=== PATIENT | male | born 1965 | race Caucasian/White ===

== ENCOUNTER 2020-10-23 12:02 | Emergency (ER) | payer OTHER ==
[~2020-10-23] VITALS: Ht 188 cm; Wt 116.0 kg
[~2020-10-23 12:02] MED LIST: ASPIRIN LOW DOS81 M1 PO; ATENOLOL25 MG OR; AUGMENTIN875TAB PO; BACTRIM DS1 TAB PO; BACTROBAN21 EX; BENADRYL 50MG C50 MG PO; BIOFLEX PO; BOOSTRIX IM; CLINDAMYCIN300 M1 PO; CYANOCOBALAM1000 MCG IM; DENIES CURRENT MEDS; FISH OIL1000 M2 PO; FLEXERIL PO; KEFLEX500 M1 PO; LORTAB 1010 MG PO; MEDDOSEPAK PO; MOBIC7.5 MG PO; MOTRIN200 MG PO; MV-ONE PO; NAPROSYN500 MG PO; NO MEDS; PEPCID20 MG PO; PREDNISONE10 MG PO; PRINIVIL10 MG OR; PRINIVIL5 MG OR; SOLU-MEDROL125 MG IM; SUPER B COM2 PO; TRIMOX500 MG PO; ZANAFLEX4 MG PO
[2020-10-23 12:59] VITALS: BP 166/98
== END 2020-10-23 14:35 | disposition home or self-care (01) | DRG 563 ==
LOC: ED 12:02
DX: S93.402A Sprain of unspecified ligament of left ankle, initial encounter (principal); V58.4XXA Person boarding or alighting a pick-up truck or van injured in noncollision transport accident, initial encounter

== ENCOUNTER 2021-01-17 17:08 | Emergency (ER) | payer OTHER | END 2021-01-17 18:07 | disposition left against medical advice (07) | DRG 951 | LOC: ED 17:08 → LWOBS 18:06 | DX: Z53.21 Procedure and treatment not carried out due to patient leaving prior to being seen by health care provider (principal) ==

== ENCOUNTER 2021-02-21 10:32 | Emergency (ER) | payer OTHER ==
[~2021-02-21] VITALS: Ht 188 cm; Wt 114.3 kg
[2021-02-21 12:20] LABS: HEMATOCRIT 51.5 % (39.0-50.0); HEMOGLOBIN 17.3 g/dl (14.0-18.0); IMMATURE GRANULOCYTES 0.5 % (0.0-5.0); MEAN CELL VOLUME 94.3 fL CALC (80.0-100.0); MEAN CORPUSCULAR HGB 31.7 pG CALC (26.0-32.0); MEAN CORPUSCULAR HGB CONC 33.6 g/dL CAL (32.0-36.0); NEUT# 3.58 thou/uL (1.82-7.42); RED BLOOD COUNT 5.46 mill/uL (4.70-6.10); RED CELL DISTRI WIDTH 12.3 % (11.5-15.5)
[2021-02-21 12:22] LABS: ALBUMIN 4.8 g/dL (3.2-5.0); ALKALINE PHOSPHATASE 76 u/l (38-126); ANION GAP 14 (6-22 (CALC)); BUN 24 mg/dL (9-20); BUN/CREATININE RATIO 23 (12-20 (CALC)); CARBON DIOXIDE 23 mmol/l (22-30); CHLORIDE 107 mmol/l (95-108); CPK 344 u/l (52-200); GFR > 60 ML/MIN (>=60 (CALC)); GFR FOR AFR.AMER. > 60 ML/MIN (>=60 (CALC)); POTASSIUM 4.2 mmol/l (3.5-5.1); SGOT/AST 42 u/l (17-59); SODIUM 139 mmol/l (137-146); TOTAL PROTEIN 8.2 g/dL (6.3-8.2)
[2021-02-21 12:24] LABS: INTERNATIONAL NORMALIZED RATIO 0.9 RATIO (0.7-1.3); PROTHROMBIN TIME 9.4 SECONDS (9.0-12.5)
[2021-02-21 12:39] LABS: BILIRUBIN, TOTAL 0.8 mg/dL (0.0-1.4)
[2021-02-21 12:52] VITALS: BP 175/101
== END 2021-02-21 12:53 | disposition short-term general hospital (02) | DRG 999 ==
LOC: ED 10:32
DX: T24.70 Corrosion of third degree of unspecified site of lower limb, except ankle and foot (principal); T32 Corrosions classified according to extent of body surface involved; T27.7XXA Corrosion of respiratory tract, part unspecified, initial encounter; T24.601A Corrosion of second degree of unspecified site of right lower limb, except ankle and foot, initial encounter; T54.2X1A Toxic effect of corrosive acids and acid-like substances, accidental (unintentional), initial encounter; Y93.89 Activity, other specified; Y92.002 Bathroom of unspecified non-institutional (private) residence as the place of occurrence of the external cause; Y99.0 Civilian activity done for income or pay

== ENCOUNTER 2022-08-19 06:41 | Day surgery (SDC) | payer OTHER ==
[~2022-08-19] VITALS: Ht 188 cm; Wt 115.7 kg
[2022-08-19] MEDS ORDERED: MELOXICAM7.5 MG PO (07:15)
[2022-08-19 11:45] VITALS: BP 138/94
== END 2022-08-19 09:45 | disposition home or self-care (01) | DRG 556 ==
LOC: ORM 06:41
PROVIDERS: ATTEND Physical Medicine & Rehabilitation
DX: M25.561 Pain in right knee (principal); M25.562 Pain in left knee; G89.4 Chronic pain syndrome; M17.0 Bilateral primary osteoarthritis of knee; M62.838 Other muscle spasm
CPT/HCPCS: Q9967

== ENCOUNTER 2024-07-10 05:55 | Emergency (ER) | payer BC ==
[2024-07-10] VITALS (9 sets, daily range): BP systolic 121–153; BP diastolic 75–120
[~2024-07-10] VITALS: Ht 188 cm; Wt 113.0 kg
[~2024-07-10 05:55] MED LIST changes: +CRESTOR20 MG PO; +MELOXICAM7.5 MG PO; +OMEPRAZOLE DR40 MG PO
[2024-07-10] MEDS ORDERED: MORPHINE SULFATE 4 MG/ML VIAL IV STA (06:13)
[2024-07-10] MEDS ORDERED: SODIUM CHLORIDE 0.9% 1,000 ML IV STA (06:13)
[2024-07-10] MEDS ORDERED: TAMSULOSIN HCL 0.4 MG CAP PO STA (06:13)
[2024-07-10] MEDS ORDERED: PROMETHAZINE HCL 25 MG/ML AMP IV ONE (06:15)
[2024-07-10] MEDS ORDERED: KETOROLAC TROMETHAMINE 30 MG/ML SDV IV ONE (06:15)
[2024-07-10 06:50] LABS: BASO% 0.4 % (0-3); EOS% 2.6 % (0-8); HEMATOCRIT 45.8 % (39.0-50.0); HEMOGLOBIN 15.6 g/dl (14.0-18.0); IMMATURE GRANULOCYTES 0.4 % (0.0-5.0); LYMPH% 41.8 % (15-41); MEAN CELL VOLUME 95.4 fL CALC (80.0-100.0); MEAN CORPUSCULAR HGB 32.5 pG CALC (26.0-32.0); MEAN CORPUSCULAR HGB CONC 34.1 g/dL CAL (32.0-36.0); MONO% 9.3 % (2-13); NEUT# 2.31 thou/uL (1.82-7.42); NEUT% 45.5 % (42-76); RED BLOOD COUNT 4.8 mill/uL (4.70-6.10)
[2024-07-10 07:04] LABS: ALBUMIN 4.7 g/dL (3.2-5.0); BILIRUBIN, TOTAL 0.7 mg/dL (0.2-1.3); CREATININE 1.3 mg/dL (0.7-1.3); POTASSIUM 3.9 mmol/l (3.5-5.1); TOTAL PROTEIN 7.9 g/dL (6.3-8.2)
[2024-07-10 08:20] LABS: URINE BILIRUBIN - DIPSTICK Negative (NEGATIVE); URINE BLOOD DIPSTICK Trace-lysed (NEGATIVE); URINE GLUCOSE - DIPSTICK Negative (NEGATIVE); URINE KETONE Negative (NEGATIVE); URINE LEUK ESTERASE Negative (NEGATIVE); URINE NITRITE - DIPSTICK Negative (Negative); URINE PROTEIN - DIPSTICK >=300 mg/dL (NEG-TRACE); URINE SPECIFIC GRAVITY 1.025; URINE UROBILINOGEN - DIPSTICK 0.2 E.U./dL (0.2)
[2024-07-10 08:21] LABS: URINE COLOR Yellow
[2024-07-10 08:28] LABS: URINE WBC 0-2 WBC/hpf (0-5)
[2024-07-10 08:29] LABS: URINE MUCUS RARE hpf (NONE-FEW); URINE SQUAMOUS EPITHELIAL CELL RARE EPI/hpf (0-FEW)
[2024-07-10] MEDS ORDERED: TAMSULOSIN0.4 MG PO (09:14)
[2024-07-10] MEDS ORDERED: TRAMADOL HYDROC50 M1 PO (09:14)
[2024-07-10] MEDS ORDERED: ZOFRAN4 MG/TAB PO (09:14)
[2024-07-10] MEDS ORDERED: TORADOL PO (09:14)
== END 2024-07-10 09:14 | disposition home or self-care (01) | DRG 694 ==
LOC: ED 05:55
PROVIDERS: Family Medicine
DX: N13.2 Hydronephrosis with renal and ureteral calculous obstruction (principal); Z87.442 Personal history of urinary calculi
CPT/HCPCS: J2550